=== PATIENT | male | born 1960 | race Caucasian/White ===

== ENCOUNTER 2017-03-14 09:32 | Inpatient (IN) | payer OTHER ==
[2017-03-14 12:18] VITALS: BMI 25.5
--- NOTE | 2017-03-14 14:15 | HP ---
COWS - Scale Resting Pulse: 0= [place] 80 or Below Sweatin=Flushed/Facial Moisture Restless Observation: 3= Extraneous Movement Pupil Size: 2= Moderately Dilated Bone or Joint Aches: 2= Severe Diffuse Aches Runny Nose/ Eye Tearin= Runny Nose/Eyes GI Upset > 30mins: 3= Vomiting/Diarrhea Tremor Observation: 2= Slight Tremor Visible Yawning Observation: 2= >3x During Session Anxiety or Irritability: 2=Irritable/Anxious Goose Flesh Skin: 0=Smooth Skin COWS Score: 20 CIWA Score - CIWA Score Nausea/Vomitin Muscle Tremors: 3 Anxiety: 3 Agitation: 3 Paroxysmal Sweats: 2 Orientation: 0-Oriented Tacttile Disturbances: 2-Mild Itch/Numbness/Burn Auditory Disturbances: 2-Mild Harshness/Frighten Visual Disturbances: 2-Mild Sensitivity Headache: 2-Mild CIWA-Ar Total Score: 22 Admission ROS BHS - HPI Chief Complaint: i need help to stop using heroin and alcohol Allergies/Adverse Reactions: Allergies Allergy/AdvReac Type Severity Reaction Status Date / Time Penicillins Allergy Severe Verified 05/12/16 12:21 History of Present Illness: this 56 years old male with heroin,alcohol dependence,seeking help to stop,last detox [facility] 05/12/16 to 05/16/16 multiple admissions in the past,keep relapsing longest period of sobriety 1 and a half years multiple medical problems htn,hiv,hepatitis c,bipolar disorder cancer of rectum on chemo and radiation therapy - Ebola screening Have you traveled outside of the country in the last 21 days: No Have you had contact with anyone from an Ebola affected area: No Have you been sick,other than usual withdrawal symptoms: No - Review of Systems Constitutional: Chills, Diaphoresis, Loss of Appetite, Malaise, Night Sweats, Changes in sleep, Weakness, Unexplained wgt Loss EENT: reports: Tearing, Nose Congestion Respiratory: reports: No Symptoms reported Cardiac: reports: No Symptoms Reported GI: reports: Diarrhea, Nausea, Vomiting, Abdominal cramping : reports: No Symptoms Reported Musculoskeletal: reports: Back Pain, Joint Pain, Muscle Pain, Joint Stiffness Integumentary: reports: Dryness Neuro: reports: Headache, Tremors Endocrine: reports: No Symptoms Reported Hematology: reports: No Symptoms Reported, Other (hiv) Psychiatric: reports: Judgement Intact (bipolar disorder), other Patient History - Patient Medical History Hx Anemia: Yes (NOT CURRENTLY ON MEDS) Hx Asthma: No Hx Chronic Obstructive Pulmonary Disease (COPD): No Hx Cancer: Yes (colorectal CA 2008. in remission) Hx Cardiac Disorders: No Hx Congestive Heart Failure: No Hx Hypertension: Yes (on meds.) Hx Hypercholesterolemia: No Hx Pacemaker: No HX Cerebrovascular Accident: No Hx Seizures: No Hx Dementia: No Hx Diabetes: No Hx Gastrointestinal Disorders: No Hx Liver Disease: No Hx Genitourinary Disorders: No Hx Sexually Transmitted Disorders: No Hx Renal Disease (ESRD): No Hx Thyroid Disease: No Hx Human Immunodeficiency Virus (HIV): Yes (SINCE 1999--ON MEDS; DENIES OIs.) Hx Hepatitis C: Yes (received tx Harvoni ) Hx Depression: Yes Hx Suicide Attempt: No (denies) Hx Bipolar Disorder: Yes (ON MEDS) Hx Schizophrenia: No Other Medical History: no suicidal,no homicidal - Patient Surgical History Past Surgical History: Yes Other Surgical History: PORTACATH RIGHT CHEST FOR CHEMO THERAPY S/P CANCER COLON 2007 still in plac Anesthesia Reaction: No - PPD History Previous Implant?: Yes Documented Results: Negative w/proof Date: 05/14/16 Results: 0 MM PPD to be Administered?: No - Smoking Cessation Smoking history: Current every day smoker Have you smoked in the past 12 months: Yes Aproximately how many cigarettes per day: 10 Hx Chewing Tobacco Use: No Initiated information on smoking cessation: Yes 'Breaking Loose' booklet given: 03/14/17 - Substance & Tx. History Hx Alcohol Use: Yes Hx Substance Use: Yes Substance Use Type: Alcohol, Heroin Hx Substance Use Treatment: Yes ([facility] last 05/12/16 to 05/16/16) Family Disease History - Family Disease History Family Disease History: Diabetes: Father (ALCOHOLISM ), Mother, Other: Father, Mother Admission Physical Exam S - Vital Signs Vital Signs: Vital Signs - 24 hr 03/14/17 12:14 Temperature 97.2 F L Pulse Rate 76 Respiratory 17 Rate Blood Pressure 127/88 - Physical General Appearance: Yes: Moderate Distress, Tremorous, Irritable, Sweating, Anxious HEENTM: Yes: Within Normal Limits, Hearing grossly Normal, RACHELE, Pharynx Normal Respiratory: Yes: Lungs Clear, Normal Breath Sounds, No Respiratory Distress, Other (scar in right upper chest post removal of portacath) Neck: Yes: Within Normal Limits Breast: Yes: Within Normal Limits Cardiology: Yes: Within Normal Limits, Regular Rhythm, Regular Rate, S1, S2 Abdominal: Yes: Within Normal Limits, Normal Bowel Sounds, Non Tender, Soft Genitourinary: Yes: Within Normal Limits Back: Yes: Within Normal Limits Musculoskeletal: Yes: Back pain, Joint Stiffness, Muscle Pain Extremities: Yes: Normal Range of Motion, Tremors Neurological: Yes: 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, Fully Oriented, Alert, Motor Strength 5/5 Integumentary: Yes: Dry Lymphatic: Yes: Within Normal Limits - Diagnostic (1) Opioid dependence with withdrawal Current Visit: Yes Status: Acute (2) Alcohol dependence with uncomplicated withdrawal Current Visit: Yes Status: Acute (3) HIV (human immunodeficiency virus infection) Current Visit: No Status: Chronic (4) HTN (hypertension) Current Visit: No Status: Chronic Qualifiers: Hypertension type: essential hypertension Qualified Code(s): I10 - Essential (primary) hypertension (5) Seizure Current Visit: Yes Status: Acute (6) Syncope Current Visit: Yes Status: Acute (7) Hepatitis C Current Visit: Yes Status: Acute (8) Colorectal cancer Current Visit: Yes Status: Acute (9) Weight loss Current Visit: Yes Status: Acute (10) Nicotine dependence Current Visit: No Status: Acute Qualifiers: Nicotine product type: cigarettes Substance use status: uncomplicated Qualified Code(s): F17.210 - Nicotine dependence, cigarettes, uncomplicated (11) Bipolar disorder Current Visit: No Status: Chronic Comment: Historical diagnosis. Cleared for Admission [facility] - Detox or Rehab [facility] Level of Care: Medically Managed Detox Regimen/Protocol: Methadone/Librium S Breath Alcohol Content Breath Alcohol Content: 0 Urine Drug Screen - Results Drug Screen Negative: No Urine Drug Screen Results: OPI-Opiates, BZO-Benzodiazepines
[2017-03-14] MEDS ORDERED: LOPERAMIDE HCL 2 MG CAPSULE PO PRN (14:54)
[2017-03-14] MEDS ORDERED: MAGNESIUM HYDROX 2400MG/30ML ORAL SUSPENSION 30 ML CUP PO PRN (14:54)
[2017-03-14] MEDS ORDERED: guaiFENesin/D-METHORPHAN HB 10 ML UNIT-DOSE CUPS PO PRN (14:54)
[2017-03-14] MEDS ORDERED: ACETAMINOPHEN 325 MG TABLET (FP) PO PRN (14:54)
[2017-03-14] MEDS ORDERED: hydrOXYzine PAMOATE 50 MG CAPSULE (FP) PO PRN (14:54)
[2017-03-14] MEDS ORDERED: MAG HYDROX/AL HYDROX/SIMETH 30 ML UNIT-DOSE CUP PO PRN (14:54)
[2017-03-14] MEDS ORDERED: MAGNESIUM CITRATE 300 ML BOTTLE PO PRN (14:54)
[2017-03-14] MEDS ORDERED: MENTHOL/PHENOL 1 EACH UD MM PRN (14:54)
[2017-03-14] MEDS ORDERED: P-EPHED 60MG/TRIPROLIDI 2.5MG TABLET PO PRN (14:54)
[2017-03-14] MEDS ORDERED: NICOTINE POLACRILEX 2 MG GUM BUC PRN (14:54)
[2017-03-14] MEDS ORDERED: METHADONE HCL 10 MG TABLET (FOR DETOX USE ONLY) PO ONE ×2 (15:10→23:00)
[2017-03-14] MEDS: chlordiazePOXIDE HCL 25 MG CAPSULE PO SCH ×2 (16:36→22:19)
[2017-03-14] MEDS: chlordiazePOXIDE HCL 25 MG CAPSULE PO PRN (19:47)
[2017-03-14] MEDS ORDERED: THIAMINE HCL 100 MG TABLET (FP) PO SCH (22:00)
[2017-03-14] MEDS: diphenhydrAMINE HCL 50 MG CAPSULE PO PRN (22:22)
[2017-03-15] MEDS: diphenhydrAMINE HCL 50 MG CAPSULE PO PRN (00:38)
[2017-03-15] MEDS: chlordiazePOXIDE HCL 25 MG CAPSULE PO PRN ×2 (00:38→12:14)
[2017-03-15] MEDS: CYCLOBENZAPRINE HCL 10 MG TABLET (FP) PO PRN ×2 (02:40→16:52)
[2017-03-15] MEDS: IBUPROFEN 400 MG TABLET (FP) PO PRN ×2 (02:40→15:52)
[2017-03-15] MEDS: chlordiazePOXIDE HCL 25 MG CAPSULE PO SCH ×2 (05:40→10:21)
[2017-03-15] MEDS ORDERED: cloNIDine HCL 0.1 MG TABLET PO ONE ×2 (07:26→17:45)
--- NOTE | 2017-03-15 09:37 | PN ---
S CIWA - CIWA Score Nausea/Vomitin Muscle Tremors: 3 Anxiety: 3 Agitation: 3 Paroxysmal Sweats: 2 Orientation: 0-Oriented Tacttile Disturbances: 1-Very Mild Itch/Numbness Auditory Disturbances: 1-Very Mild Visual Disturbances: 1-Very Mild Sensitivity Headache: 2-Mild CIWA-Ar Total Score: 19 BHS COWS - Scale Resting Pulse: 0= [place] 80 or Below Sweatin= Chills/Flushing Restless Observation: 3= Extraneous Movement Pupil Size: 2= Moderately Dilated Bone or Joint Aches: 2= Severe Diffuse Aches Runny Nose/ Eye Tearin= Runny Nose/Eyes GI Upset > 30mins: 2= Nausea/Diarrhea Tremor Observation of Outstretched Hands: 2= Slight Tremor Visible Yawning Observation: 1= 1-2x During Session Anxiety or Irritability: 2=Irritable/Anxious Goose Flesh Skin: 0=Smooth Skin COWS Score: 17 S Progress Note (SOAP) Subjective: ALERT,IRRITABLE,ANXIOUS,INTERRUPTED SLEEP,TREMOR,PAIN IN THE BODY AND BACK, TREMOR Objective: 03/15/17 09:35 Vital Signs Temperature 97.3 F L 03/15/17 06:22 Pulse Rate 73 03/15/17 06:22 Respiratory Rate 18 03/15/17 06:22 Blood Pressure 148/105 03/15/17 06:22 O2 Sat by Pulse Oximetry (%) EKG NSR,NORMAL ECG LABS PENDING Assessment: 03/15/17 09:36 WITHDRAWAL SYMPTOM Plan: CONTINUE DETOX
[2017-03-15] MEDS ORDERED: amLODIPine BESYLATE 5 MG TABLET (FP) PO SCH (10:00)
[2017-03-15] MEDS ORDERED: PRENATAL VITAMINS W/ FOLIC ACID TABLET (FP) PO SCH (10:00)
[2017-03-15] MEDS ORDERED: METHADONE HCL 10 MG TABLET (FOR DETOX USE ONLY) PO SCH (10:00)
[2017-03-15 10:04] LABS: MCH 33.7 pg (25.7-33.7); MCHC 34.1 g/dl (32.0-35.9); MEAN CELL VOLUME 98.9 fl (80-96); MEAN PLT VOLUME 9.3 fl (7.5-11.1); PLATELET COUNT 195 K/MM3 (134-434); RDW 14.5 % (11.9-15.9); WHITE BLOOD COUNT 8.8 K/mm3 (4.0-10.0)
[2017-03-15] MEDS: levETIRAcetam 500 MG TABLET (FP) PO SCH ×2 (10:24→12:21)
[2017-03-15 10:30] LABS: ALBUMIN 4.1 g/dl (3.4-5.0); ALK PHOS 129 U/L (45-117); ANION GAP 7 (8-16); BILIRUBIN,TOTAL 0.5 mg/dL (0.2-1.0); CALCIUM 9.4 mg/dL (8.5-10.1); CO2 28 mmol/L (21-32); CREATININE 1.2 mg/dL (0.7-1.3); GLUCOSE,RANDOM 94 mg/dL (74-106); SGOT/AST 22 U/L (15-37); SGPT/ALT 28 U/L (12-78); TOT PROT 7.9 g/dl (6.4-8.2)
[2017-03-15] MEDS ORDERED: SERTRALINE HCL 50 MG TABLET (FP) PO SCH (11:30)
[2017-03-15] MEDS ORDERED: NICOTINE 21 MG/24 HOURS TOPICAL PATCH TD SCH (12:15)
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
[2017-03-15] MEDS ORDERED: cloNIDine HCL 0.1 MG TABLET ONE (16:59)
[2017-03-15] MEDS ORDERED: chlordiazePOXIDE HCL 25 MG CAPSULE PO SCH (17:00)
[2017-03-15 17:12] VITALS: BP 155/110; PULSE 83; TEMP 97.2
--- NOTE | 2017-03-15 17:14 | EKG ---
Test Reason : Blood Pressure : / mmHG Vent. Rate : 080 BPM Atrial Rate : 080 BPM P-R Int : 198 ms QRS Dur : 088 ms QT Int : 390 ms P-R-T Axes : 066 064 065 degrees QTc Int : 449 ms NORMAL SINUS RHYTHM. NONSPECIFIC ST AND T WAVE ABNORMALITY NO PREVIOUS ECGS AVAILABLE Confirmed by FRANCOISE MOYER MD ([id number]) on 03/15/2017 5:14:06 PM Referred By: Confirmed By:FRANCOISE MOYER MD
--- NOTE | 2017-03-15 18:17 | PN ---
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 He stated "I just want to go and I have nothing to say to you". When asked what home medications he needs refills for he stated " I don't need anything". Pt. was agitated and did not want to answer any further questions.
[2017-03-15] MEDS ORDERED: QUEtiapine FUMARATE 100 MG TABLET (FP) PO SCH (22:00)
[2017-03-16] MEDS ORDERED: METHADONE HCL 5 MG TABLET (FOR DETOX USE ONLY) PO SCH (10:00)
[2017-03-16] MEDS ORDERED: chlordiazePOXIDE 5 MG CAPSULE PO SCH (17:00)
[2017-03-17] MEDS ORDERED: chlordiazePOXIDE HCL 10 MG CAPSULE PO SCH (17:00)
[2017-03-18] MEDS ORDERED: METHADONE HCL 10 MG TABLET (FOR DETOX USE ONLY) PO SCH (10:00)
[2017-03-19] MEDS ORDERED: METHADONE HCL 5 MG TABLET (FOR DETOX USE ONLY) PO SCH (06:00)
== END 2017-03-15 18:37 | disposition left against medical advice (07) | DRG 770 ==
LOC: YASAS 09:32 → Y6N 14:48
PROVIDERS: ADMIT Internal Medicine Addiction Medicine; ATTEND Internal Medicine Addiction Medicine
PROC: HZ2ZZZZ Detoxification Services for Substance Abuse Treatment (ICD-10-PCS; principal; 2017-03-15)
DX: F11.23 Opioid dependence with withdrawal (principal); F10.230 Alcohol dependence with withdrawal, uncomplicated; F17.210 Nicotine dependence, cigarettes, uncomplicated; F31.9 Bipolar disorder, unspecified; G40.909 Epilepsy, unspecified, not intractable, without status epilepticus; B18.2 Chronic viral hepatitis C; R55 Syncope and collapse; Z21 Asymptomatic human immunodeficiency virus [HIV] infection status; R63.4 Abnormal weight loss; Z68.25 Body mass index [BMI] 25.0-25.9, adult; Z85.038 Personal history of other malignant neoplasm of large intestine
CPT/HCPCS: 36415; 80053; 85027; 86593; 93005; 93010

== ENCOUNTER 2017-05-09 10:46 | Inpatient (IN) | payer OTHER ==
[2017-05-09 12:11] VITALS: BMI 27.0
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
[2017-05-09] MEDS ORDERED: MAG HYDROX/AL HYDROX/SIMETH 30 ML UNIT-DOSE CUP PO PRN (14:03)
[2017-05-09] MEDS ORDERED: NICOTINE POLACRILEX 4 MG GUM BC PRN (14:03)
[2017-05-09] MEDS ORDERED: MAGNESIUM CITRATE 300 ML BOTTLE PO PRN (14:03)
[2017-05-09] MEDS ORDERED: MAGNESIUM HYDROX 2400MG/30ML ORAL SUSPENSION 30 ML CUP PO PRN (14:03)
[2017-05-09] MEDS ORDERED: diphenhydrAMINE HCL 50 MG CAPSULE PO PRN (14:03)
[2017-05-09] MEDS ORDERED: guaiFENesin/D-METHORPHAN HB 10 ML UNIT-DOSE CUPS PO PRN (14:03)
[2017-05-09] MEDS ORDERED: hydrOXYzine PAMOATE 50 MG CAPSULE (FP) PO PRN (14:03)
[2017-05-09] MEDS ORDERED: MENTHOL/PHENOL 1 EACH UD MM PRN (14:03)
[2017-05-09] MEDS ORDERED: LOPERAMIDE HCL 2 MG CAPSULE PO PRN (14:03)
[2017-05-09] MEDS ORDERED: P-EPHED 60MG/TRIPROLIDI 2.5MG TABLET PO PRN (14:03)
[2017-05-09] MEDS ORDERED: ACETAMINOPHEN 325 MG TABLET (FP) PO PRN (14:03)
[2017-05-09] MEDS ORDERED: IBUPROFEN 400 MG TABLET (FP) PO PRN (14:03)
[2017-05-09] MEDS: diazePAM 5 MG TABLET PO SCH ×2 (14:54→22:14)
[2017-05-09] MEDS ORDERED: diazePAM 5 MG TABLET PO ONE (15:00)
[2017-05-09] MEDS ORDERED: METHADONE HCL 10 MG TABLET (FOR DETOX USE ONLY) PO ONE ×2 (15:00→23:00)
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
[2017-05-09 18:35] LABS: MCH 33.5 pg (25.7-33.7); MCHC 34.6 g/dl (32.0-35.9); MEAN CELL VOLUME 96.9 fl (80-96); MEAN PLT VOLUME 9.9 fl (7.5-11.1); PLATELET COUNT 140 K/MM3 (134-434); RDW 14.4 % (11.9-15.9); WHITE BLOOD COUNT 6.2 K/mm3 (4.0-10.0)
[2017-05-09] MEDS: diazePAM 5 MG TABLET PO PRN (19:00)
[2017-05-09 19:11] LABS: ALBUMIN 4.2 g/dl (3.4-5.0); ALK PHOS 143 U/L (45-117); ANION GAP 7 (8-16); BILIRUBIN,TOTAL 0.3 mg/dL (0.2-1.0); CO2 27 mmol/L (21-32); CREATININE 1.5 mg/dL (0.7-1.3); GLUCOSE,RANDOM 119 mg/dL (74-106); SGOT/AST 29 U/L (15-37); SGPT/ALT 39 U/L (12-78); TOT PROT 7.9 g/dl (6.4-8.2)
[2017-05-09 20:01] LABS: URINE APPEARANCE CLEAR; URINE BILIRUBIN 1+ (NEGATIVE); URINE BLOOD 2+ (NEGATIVE); URINE COLOR DK. BROWN; URINE GLUCOSE (UA) NEGATIVE (NEGATIVE); URINE KETONE TRACE (NEGATIVE); URINE LEUK ESTERASE NEGATIVE (NEGATIVE); URINE UROBILINOGEN 0.2 mg/dL (0.2-1.0)
[2017-05-09 20:08] LABS: URINE NITRITE POSITIVE (NEGATIVE); URINE PROTEIN 1+ (NEGATIVE)
[2017-05-09 20:24] LABS: URINE BACTERIA RARE /hpf (NONE SEEN); URINE HYALINE CAST 1 /lpf; URINE MUCUS RARE; URINE RBC 3 /hpf (0-3); URINE WBC 3 /hpf (3-5)
[2017-05-09] MEDS ORDERED: THIAMINE HCL 100 MG TABLET (FP) PO SCH (22:00)
[2017-05-09] MEDS ORDERED: QUEtiapine FUMARATE 100 MG TABLET (FP) PO SCH (22:00)
[2017-05-09] MEDS: RALTEGRAVIR POTASSIUM 400 MG TAB PO SCH (22:14)
--- NOTE | 2017-05-09 23:17 | EKG ---
Test Reason : Blood Pressure : / mmHG Vent. Rate : 079 BPM Atrial Rate : 079 BPM P-R Int : 196 ms QRS Dur : 086 ms QT Int : 402 ms P-R-T Axes : 073 060 060 degrees QTc Int : 460 ms NORMAL SINUS RHYTHM NORMAL ECG WHEN COMPARED WITH ECG OF 14-MAR-2017 15:40, NO SIGNIFICANT CHANGE WAS FOUND Confirmed by CAROLANN SILVER MD ([id number]) on 05/09/2017 11:16:44 PM Referred By: Xiang Guerrero Confirmed By:CAROLANN SILVER MD
[2017-05-10] MEDS: diazePAM 5 MG TABLET PO SCH (05:10)
[2017-05-10] MEDS: diazePAM 5 MG TABLET PO PRN (07:43)
[2017-05-10 09:19] VITALS: BP 92/67; PULSE 80; TEMP 97.4
[2017-05-10] MEDS ORDERED: CYCLOBENZAPRINE HCL 10 MG TABLET (FP) PO ONE (09:51)
[2017-05-10] MEDS ORDERED: PATIENT'S OWN MEDICATION (NON-FORMULARY) (Abacavir Sulfate/Lamivudine [Epzicom Tablet] 1 T PO SCH (10:00)
[2017-05-10] MEDS ORDERED: METHADONE HCL 10 MG TABLET (FOR DETOX USE ONLY) PO SCH (10:00)
[2017-05-10] MEDS ORDERED: NICOTINE 21 MG/24 HOURS TOPICAL PATCH TD SCH (10:00)
[2017-05-10] MEDS ORDERED: PRENATAL VITAMINS W/ FOLIC ACID TABLET (FP) PO SCH (10:00)
[2017-05-10] MEDS ORDERED: ABACAVIR SULFATE 300 MG TABLET PO SCH (10:00)
[2017-05-10] MEDS ORDERED: amLODIPine BESYLATE 5 MG TABLET (FP) PO SCH (10:00)
[2017-05-10] MEDS: RALTEGRAVIR POTASSIUM 400 MG TAB PO SCH (10:16)
--- NOTE | 2017-05-10 12:03 | DS ---
[facility] Detox Discharge Summary Admission Date: 05/09/17 Discharge Date: 05/10/17 - History Present History: Alcohol Dependence, Opioid Dependence, Sedative Dependence Additional Comments: PT DECLINED TO CONTINUE WITH DETOX STATING HE DOES NOT WANT TO BE HERE. Pertinent Past History: HTN HIV(+) WEIGHT LOSS S/P COLORECTAL CANCER - Physical Exam Results Vital Signs: Vital Signs Temperature 97.4 F L 05/10/17 09:15 Pulse Rate 80 05/10/17 09:15 Respiratory Rate 18 05/10/17 09:15 Blood Pressure 92/67 05/10/17 09:15 O2 Sat by Pulse Oximetry (%) Pertinent Admission Physical Exam Findings: WITHDRAWAL SX Laboratory Last Values - Treatment Hospital Course: Discharged Condition Good - Medication Discharge Medications: Ambulatory Orders Dolutegravir Sodium [Tivicay] 50 mg PO DAILY 09/09/15 Abacavir Sulfate/Lamivudine [Epzicom Tablet] 1 tablet PO DAILY 05/12/16 Amlodipine Besylate [Norvasc -] 5 mg PO DAILY 03/14/17 Quetiapine Fumarate [Seroquel] 100 mg PO HS #30 tablet 03/15/17 Quetiapine Fumarate [Seroquel] 100 mg PO HS #30 tablet 05/09/17 - Diagnosis (1) Alcohol dependence with uncomplicated withdrawal Status: Acute (2) Nicotine dependence Status: Acute Qualifiers: Nicotine product type: cigarettes Substance use status: in withdrawal Qualified Code(s): F17.213 - Nicotine dependence, cigarettes, with withdrawal (3) HIV (human immunodeficiency virus infection) Status: Chronic (4) Hepatitis C Status: Chronic Qualifiers: Viral hepatitis chronicity: chronic Hepatic coma status: without hepatic coma Qualified Code(s): B18.2 - Chronic viral hepatitis C (5) Weight loss Status: Chronic (6) Opioid dependence with withdrawal Status: Acute (7) HTN (hypertension) Status: Chronic Qualifiers: Hypertension type: essential hypertension Qualified Code(s): I10 - Essential (primary) hypertension (8) Sedative, hypnotic or anxiolytic dependence with withdrawal, uncomplicated Status: Acute - AMA Did Patient Leave Against Medical Advice: Yes (AMA)
[2017-05-10] MEDS ORDERED: CYCLOBENZAPRINE HCL 10 MG TABLET (FP) PO SCH (14:00)
[2017-05-11] MEDS ORDERED: diazePAM 5 MG TABLET PO SCH (10:00)
[2017-05-11] MEDS ORDERED: METHADONE HCL 5 MG TABLET (FOR DETOX USE ONLY) PO SCH (10:00)
[2017-05-13] MEDS ORDERED: METHADONE HCL 10 MG TABLET (FOR DETOX USE ONLY) PO SCH (10:00)
[2017-05-13] MEDS ORDERED: diazePAM 5 MG TABLET PO SCH (10:00)
[2017-05-14] MEDS ORDERED: METHADONE HCL 5 MG TABLET (FOR DETOX USE ONLY) PO SCH (06:00)
== END 2017-05-10 11:22 | disposition left against medical advice (07) | DRG 770 ==
LOC: YASAS 10:46 → Y3N 14:08
PROVIDERS: ADMIT Internal Medicine; ATTEND Internal Medicine
PROC: HZ2ZZZZ Detoxification Services for Substance Abuse Treatment (ICD-10-PCS; principal; 2017-05-09)
DX: F11.23 Opioid dependence with withdrawal (principal); F13.230 Sedative, hypnotic or anxiolytic dependence with withdrawal, uncomplicated; F10.230 Alcohol dependence with withdrawal, uncomplicated; F17.213 Nicotine dependence, cigarettes, with withdrawal; F19.24 Other psychoactive substance dependence with psychoactive substance-induced mood disorder; Z21 Asymptomatic human immunodeficiency virus [HIV] infection status; B18.2 Chronic viral hepatitis C; G47.00 Insomnia, unspecified; Z91.14 Patient's other noncompliance with medication regimen; Z87.898 Personal history of other specified conditions; Z86.69 Personal history of other diseases of the nervous system and sense organs; Z85.038 Personal history of other malignant neoplasm of large intestine; Z92.21 Personal history of antineoplastic chemotherapy; Z91.5 Personal history of self-harm
CPT/HCPCS: 36415; 80053; 81003; 81015; 85027; 86593; 93005; 93010

== ENCOUNTER 2018-05-19 08:46 | Inpatient (IN) | payer OTHER ==
[2018-05-19 10:23] VITALS: BMI 25.8
--- NOTE | 2018-05-19 12:24 | HP ---
COWS - Scale Resting Pulse: 1= [place] 81-100 Sweatin= Chills/Flushing Restless Observation: 0= Sits Still Pupil Size: 0= Normal to Room Light Bone or Joint Aches: 2= Severe Diffuse Aches Runny Nose/ Eye Tearin= None GI Upset > 30mins: 2= Nausea/Diarrhea Tremor Observation: 0= None Yawning Observation: 0= None Anxiety or Irritability: 2=Irritable/Anxious Goose Flesh Skin: 0=Smooth Skin COWS Score: 8 Admission ROS S - HPI Allergies/Adverse Reactions: Allergies Allergy/AdvReac Type Severity Reaction Status Date / Time Penicillins Allergy Severe seizures Verified 05/19/18 10:58 History of Present Illness: patient here requesting detox from heroin use , reports 3-4 bags daily ivdu , first age of use 19 , latest use last night , reports symptoms as above - chills, nausea, severe anxiety , bodyaches . Prior detox "a Lot " most recently at this facility Jun 2017 . utox : opi, oxy, fentanyl denies fentanyl, admits to oxycodone 2-3 mg /day , reports 30 mg each , latest 2 d . ago . pmhx : htn ,HIV+ pshx : denies psych : bipolar , depression, ptsd allergies : PCN meds : none - claims he is supposed to take Wellbutrin, seroquel , has not taken in > 8 months . tobacco : 6-10 cigs/day ,requesting nrt w/ patch Exam Limitations: No Limitations - Ebola screening Have you traveled outside of the country in the last 21 days: No Have you had contact with anyone from an Ebola affected area: No Have you been sick,other than usual withdrawal symptoms: No Do you have a fever: No - Review of Systems Constitutional: Chills EENT: reports: No Symptoms Reported, Other (glasses for reading) Respiratory: reports: No Symptoms reported Cardiac: reports: No Symptoms Reported GI: reports: Diarrhea, Nausea : reports: No Symptoms Reported Musculoskeletal: reports: Back Pain Integumentary: reports: No Symptoms Reported Neuro: reports: Seizure Endocrine: reports: No Symptoms Reported Psychiatric: reports: Judgement Intact, Orientated x3, Depressed Other Systems: Reviewed and Negative Patient History - Patient Medical History Hx Anemia: Yes (NOT CURRENTLY ON MEDS) Hx Asthma: No Hx Chronic Obstructive Pulmonary Disease (COPD): No Hx Cancer: Yes (colorectal CA 2008. in remission) Hx Cardiac Disorders: No Hx Congestive Heart Failure: No Hx Hypertension: Yes Hx Hypercholesterolemia: No Hx Pacemaker: No HX Cerebrovascular Accident: No Hx Seizures: Yes (drug related seizures-last episode was in 06/2017) Hx Dementia: No Hx Diabetes: No Hx Gastrointestinal Disorders: No Hx Liver Disease: No Hx Genitourinary Disorders: No Hx Sexually Transmitted Disorders: Yes (gonorrhea at age 16) Hx Renal Disease (ESRD): No Hx Thyroid Disease: No Hx Human Immunodeficiency Virus (HIV): Yes (SINCE 1999--ON MEDS; DENIES OIs.) Hx Hepatitis C: Yes (received tx Harvoni ) Hx Depression: Yes Hx Suicide Attempt: No Hx Bipolar Disorder: Yes (DID NOT TOLERATE WELBUTRIN AND ZOLOFT PREVIOUSLY WELL. ) Hx Schizophrenia: No - Patient Surgical History Past Surgical History: Yes Hx Neurologic Surgery: No Hx Cataract Extraction: No Hx Cardiac Surgery: No Hx Lung Surgery: No Hx Breast Surgery: No Hx Breast Biopsy: No Hx Abdominal Surgery: No Hx Appendectomy: No Hx Cholecystectomy: No Hx Genitourinary Surgery: No Hx Section: No Hx Orthopedic Surgery: No Other Surgical History: PORTACATH RIGHT CHEST FOR CHEMO THERAPY S/P CANCER COLON Anesthesia Reaction: No (portacath, right chest removed in 2013) - PPD History Previous Implant?: Yes Documented Results: Negative w/proof Implanted On Prior [facility] Admission?: Yes Date: 07/06/17 Results: 0 mm - Smoking Cessation Smoking history: Current every day smoker Have you smoked in the past 12 months: Yes Aproximately how many cigarettes per day: 6 Hx Chewing Tobacco Use: No Initiated information on smoking cessation: No - Substances Abused Heroin Route: Injection Frequency: Daily Amount used: 4 bags Age of first use: 19 Date of Last Use: 05/19/18 Family Disease History - Family Disease History Family History: Denies Admission Physical Exam BHS - Vital Signs Vital Signs: Vital Signs - 24 hr 05/19/18 10:19 Temperature 96.6 F L Pulse Rate 81 Respiratory 20 Rate Blood Pressure 152/92 - Physical General Appearance: Yes: Within Normal Limits, No Apparent Distress, Nourished, Appropriately Dressed HEENTM: Yes: Within Normal Limits, EOMI, Hearing grossly Normal, Normal ENT Inspection, Normocephalic, Normal Voice, RACHELE, Pharynx Normal Respiratory: Yes: Within Normal Limits, Chest Non-Tender, Lungs Clear, Normal Breath Sounds, No Respiratory Distress, No Accessory Muscle Use Neck: Yes: Within Normal Limits, No masses,lesions,Nodules, Trachea in good position Cardiology: Yes: Within Normal Limits, Regular Rhythm, Regular Rate Abdominal: Yes: Within Normal Limits, Normal Bowel Sounds, Non Tender, Flat, Soft Genitourinary: Yes: Within Normal Limits Back: Yes: Within Normal Limits, Normal Inspection Musculoskeletal: Yes: Within Normal Limits, full range of Motion, Gait Steady, Pelvis Stable Extremities: Yes: Within Normal Limits, Normal Capillary Refill, Normal Inspection, Normal Range of Motion, Non-Tender Neurological: Yes: Within Normal Limits, mortar maker II-XII NML intact, Fully Oriented, Alert, Motor Strength 5/5, Normal Mood/Affect, Normal Response Integumentary: Yes: Within Normal Limits, Normal Color, Dry, Warm - Addiitonal Findings: [facility] called @ [phone] , for verification of medications as requested by patient , spoke w/ pharmacist who refused to give medication information and requested call from patient . Floor nurse informed ( Clotilde ) . - Diagnostic (1) Opioid dependence with withdrawal Current Visit: Yes Status: Acute Cleared for Admission [facility] - Detox or Rehab [facility] Level of Care: Medically Supervised Detox Regimen/Protocol: Methadone [facility] Breath Alcohol Content Breath Alcohol Content: 0 Urine Drug Screen - Results Drug Screen Negative: No Urine Drug Screen Results: OPI-Opiates, OXY-Oxycodone, FEN-Fentanyl
[2018-05-19] MEDS ORDERED: guaiFENesin/D-METHORPHAN HB 10 ML UNIT-DOSE CUPS PO PRN (12:30)
[2018-05-19] MEDS ORDERED: MAG HYDROX/AL HYDROX/SIMETH 30 ML UNIT-DOSE CUP PO PRN (12:30)
[2018-05-19] MEDS ORDERED: LOPERAMIDE HCL 2 MG CAPSULE PO PRN (12:30)
[2018-05-19] MEDS ORDERED: ACETAMINOPHEN 325 MG TABLET (FP) PO PRN (12:30)
[2018-05-19] MEDS ORDERED: MAGNESIUM HYDROX 2400MG/30ML ORAL SUSPENSION 30 ML CUP PO PRN (12:30)
[2018-05-19] MEDS ORDERED: P-EPHED 60MG/TRIPROLIDI 2.5MG TABLET PO PRN (12:30)
[2018-05-19] MEDS ORDERED: MENTHOL/PHENOL 1 EACH UD MM PRN (12:30)
[2018-05-19] MEDS ORDERED: MAGNESIUM CITRATE 300 ML BOTTLE PO PRN (12:30)
[2018-05-19] MEDS ORDERED: cloNIDine HCL 0.1 MG TABLET PO PRN (12:32)
[2018-05-19] MEDS ORDERED: METHADONE HCL 10 MG TABLET (FOR DETOX USE ONLY) PO ONE ×2 (13:00→23:00)
[2018-05-19] MEDS: CYCLOBENZAPRINE HCL 5 MG TABLET PO PRN (14:09)
[2018-05-19] MEDS: NICOTINE 7 MG/24 HOURS TOPICAL PATCH TD SCH (14:09)
[2018-05-19] MEDS: hydrOXYzine PAMOATE 25 MG CAPSULE (FP) PO PRN (14:09)
[2018-05-19] MEDS: amLODIPine BESYLATE 5 MG TABLET (FP) PO SCH (14:09)
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
[2018-05-19 17:35] LABS: URINE APPEARANCE SLCLOUDY; URINE BILIRUBIN NEGATIVE (<2.0 mg/dL); URINE COLOR YELLOW; URINE GLUCOSE (UA) NEGATIVE (NEGATIVE); URINE KETONE NEGATIVE (NEGATIVE); URINE LEUK ESTERASE NEGATIVE (NEGATIVE); URINE NITRITE NEGATIVE (NEGATIVE); URINE UROBILINOGEN NEGATIVE mg/dL (0.2-1.0)
[2018-05-19 17:37] LABS: URINE PROTEIN 1+ (NEGATIVE)
[2018-05-19 17:41] LABS: CALCIUM OXALATE CRYSTALS FEW /hpf (NONE SEEN); EPI CELLS RARE /HPF (FEW); URINE HYALINE CAST 56 /lpf; URINE MUCUS MANY
[2018-05-19] MEDS: QUEtiapine FUMARATE 50 MG TABLET PO SCH (22:21)
[2018-05-19] MEDS: THIAMINE HCL 100 MG TABLET (FP) PO SCH (22:21)
[2018-05-20] MEDS ORDERED: METHADONE HCL 10 MG TABLET (FOR DETOX USE ONLY) PO ONE (10:00)
[2018-05-20] MEDS: PRENATAL VITAMINS W/ FOLIC ACID TABLET (FP) PO SCH (10:27)
[2018-05-20] MEDS: amLODIPine BESYLATE 5 MG TABLET (FP) PO SCH (10:27)
[2018-05-20] MEDS: NICOTINE 7 MG/24 HOURS TOPICAL PATCH TD SCH (10:27)
[2018-05-20] MEDS: hydrOXYzine PAMOATE 25 MG CAPSULE (FP) PO PRN ×4 (10:30→22:37)
[2018-05-20] MEDS: IBUPROFEN 400 MG TABLET (FP) PO PRN (10:33)
[2018-05-20 10:52] LABS: HEMOGLOBIN 13.1 GM/dL (11.7-16.9); MCH 32.5 pg (25.7-33.7); MCHC 33.6 g/dl (32.0-35.9); MEAN CELL VOLUME 96.8 fl (80-96); MEAN PLT VOLUME 9.1 fl (7.5-11.1); PLATELET COUNT 194 K/MM3 (134-434); RBC 4.03 M/mm3 (4.00-5.60); RDW 13.6 % (11.9-15.9); WHITE BLOOD COUNT 7.9 K/mm3 (4.0-10.0)
[2018-05-20 10:58] LABS: ALBUMIN 3.8 g/dl (3.4-5.0); ALK PHOS 137 U/L (45-117); ANION GAP 10 MMOL/L (8-16); BILIRUBIN,TOTAL 0.4 mg/dL (0.2-1); BLOOD UREA NITROGEN 16 mg/dL (7-18); CALCIUM 9.3 mg/dL (8.5-10.1); CHLORIDE 103 mmol/L (98-107); CO2 26 mmol/L (21-32); CREATININE 1.6 mg/dL (0.55-1.3); GLUCOSE,RANDOM 114 mg/dL (74-106); POTASSIUM 3.9 mmol/L (3.5-5.1); SGOT/AST 22 U/L (15-37); SGPT/ALT 27 U/L (13-61); SODIUM 139 mmol/L (136-145); TOT PROT 7.8 g/dl (6.4-8.2)
--- NOTE | 2018-05-20 11:12 | PN ---
BHS COWS - Scale Resting Pulse: 0= [place] 80 or Below Sweatin=Flushed/Facial Moisture Restless Observation: 1= Difficult to Sit Still Pupil Size: 0= Normal to Room Light Bone or Joint Aches: 2= Severe Diffuse Aches Runny Nose/ Eye Tearin= Nasal Congestion GI Upset > 30mins: 1= Stomach Cramp Tremor Observation of Outstretched Hands: 2= Slight Tremor Visible Yawning Observation: 0= None Anxiety or Irritability: 2=Irritable/Anxious Goose Flesh Skin: 3=Piloerection COWS Score: 14 BHS Progress Note (SOAP) Subjective: Interrupted sleep, restlessness, muscle ache Objective: 05/20/18 11:11 Vital Signs 05/20/18 05/20/18 05/20/18 03:30 06:00 10:07 Temperature 98.2 F 97.9 F Pulse Rate 76 68 Respiratory 18 18 16 Rate Blood Pressure 136/76 141/86 Laboratory Last Values WBC 7.9 K/mm3 (4.0-10.0) 05/20/18 06:10 RBC 4.03 M/mm3 (4.00-5.60) 05/20/18 06:10 Hgb 13.1 GM/dL (11.7-16.9) 05/20/18 06:10 Hct 39.0 % (35.4-49) 05/20/18 06:10 MCV 96.8 fl (80-96) H 05/20/18 06:10 MCH 32.5 pg (25.7-33.7) 05/20/18 06:10 MCHC 33.6 g/dl (32.0-35.9) 05/20/18 06:10 RDW 13.6 % (11.9-15.9) 05/20/18 06:10 Plt Count 194 K/MM3 (134-434) D 05/20/18 06:10 MPV 9.1 fl (7.5-11.1) D 05/20/18 06:10 Sodium 139 mmol/L (136-145) 05/20/18 06:10 Potassium 3.9 mmol/L (3.5-5.1) 05/20/18 06:10 Chloride 103 mmol/L (98-107) 05/20/18 06:10 Carbon Dioxide 26 mmol/L (21-32) 05/20/18 06:10 Anion Gap 10 MMOL/L (8-16) 05/20/18 06:10 BUN 16 mg/dL (7-18) 05/20/18 06:10 Creatinine 1.6 mg/dL (0.55-1.3) H 05/20/18 06:10 Creat Clearance w eGFR 44.94 (>60) 05/20/18 06:10 Random Glucose 114 mg/dL (74-106) H 05/20/18 06:10 Calcium 9.3 mg/dL (8.5-10.1) 05/20/18 06:10 Total Bilirubin 0.4 mg/dL (0.2-1) 05/20/18 06:10 AST 22 U/L (15-37) 05/20/18 06:10 ALT 27 U/L (13-61) 05/20/18 06:10 Alkaline Phosphatase 137 U/L (45-117) H 05/20/18 06:10 Total Protein 7.8 g/dl (6.4-8.2) 05/20/18 06:10 Albumin 3.8 g/dl (3.4-5.0) 05/20/18 06:10 Urine Color Yellow 05/19/18 15:30 Urine Appearance Slcloudy 05/19/18 15:30 Urine pH 5.0 (5.0-8.0) 05/19/18 15:30 Ur Specific [place] 1.019 (1.001-1.035) 05/19/18 15:30 Urine Protein 1+ (NEGATIVE) H 05/19/18 15:30 Urine Glucose (UA) Negative (NEGATIVE) 05/19/18 15:30 Urine Ketones Negative (NEGATIVE) 05/19/18 15:30 Urine Blood Negative (NEGATIVE) 05/19/18 15:30 Urine Nitrite Negative (NEGATIVE) 05/19/18 15:30 Urine Bilirubin Negative (<2.0 mg/dL) 05/19/18 15:30 Urine Urobilinogen Negative mg/dL (0.2-1.0) 05/19/18 15:30 Ur Leukocyte Esterase Negative (NEGATIVE) 05/19/18 15:30 Urine WBC (Auto) 1 /hpf (3-5) 05/19/18 15:30 Urine RBC (Auto) 1 /hpf (0-3) 05/19/18 15:30 Ur Epithelial Cells Rare /HPF (FEW) 05/19/18 15:30 Calcium Oxalate Crystal Few /hpf (NONE SEEN) 05/19/18 15:30 Hyaline Casts 56 /lpf 05/19/18 15:30 Urine Mucus Many 05/19/18 15:30 Labs noted Assessment: 05/20/18 11:11 Withdrawal sx Plan: Continue detox
[2018-05-20] MEDS ORDERED: FLU VACCINE QUAD 60 MCG/0.5 ML (MDV 18-19) IM ONE (12:00)
--- NOTE | 2018-05-20 15:52 | EKG ---
Test Reason : Blood Pressure : / mmHG Vent. Rate : 075 BPM Atrial Rate : 075 BPM P-R Int : 186 ms QRS Dur : 092 ms QT Int : 408 ms P-R-T Axes : 075 061 057 degrees QTc Int : 455 ms NORMAL SINUS RHYTHM NORMAL ECG WHEN COMPARED WITH ECG OF 04-JUL-2017 13:35, NO SIGNIFICANT CHANGE WAS FOUND Confirmed by MD Navarro Daniel ([id number]) on 05/20/2018 3:52:03 PM Referred By: Confirmed By:Amilcar Navarro MD
--- NOTE | 2018-05-20 15:56 | PN ---
[facility] Progress Note Note: Patient on Biktarvy for HIV which he has been asking for, verified with pharmacy in the community ). [facility] Pharmacy unable to dispense drug , patient made aware
[2018-05-20] MEDS: THIAMINE HCL 100 MG TABLET (FP) PO SCH (22:10)
[2018-05-20] MEDS: MELATONIN 5 MG TABLETS PO PRN (22:11)
[2018-05-20] MEDS: QUEtiapine FUMARATE 50 MG TABLET PO SCH (22:12)
[2018-05-21] MEDS: IBUPROFEN 400 MG TABLET (FP) PO PRN ×3 (00:41→17:40)
[2018-05-21] MEDS: CYCLOBENZAPRINE HCL 5 MG TABLET PO PRN (00:41)
[2018-05-21] MEDS: hydrOXYzine PAMOATE 25 MG CAPSULE (FP) PO PRN ×2 (06:01→17:40)
[2018-05-21] MEDS: PRENATAL VITAMINS W/ FOLIC ACID TABLET (FP) PO SCH (09:46)
[2018-05-21] MEDS: amLODIPine BESYLATE 5 MG TABLET (FP) PO SCH (09:46)
[2018-05-21] MEDS: NICOTINE 7 MG/24 HOURS TOPICAL PATCH TD SCH (09:47)
[2018-05-21] MEDS ORDERED: METHADONE HCL 5 MG TABLET (FOR DETOX USE ONLY) PO ONE (10:00)
--- NOTE | 2018-05-21 13:51 | PN ---
BHS COWS - Scale Resting Pulse: 0= [place] 80 or Below Sweatin= Chills/Flushing Restless Observation: 1= Difficult to Sit Still Pupil Size: 1= Pupils >than Normal Bone or Joint Aches: 1= Mild Discomfort Runny Nose/ Eye Tearin= Nasal Congestion GI Upset > 30mins: 1= Stomach Cramp Tremor Observation of Outstretched Hands: 2= Slight Tremor Visible Yawning Observation: 2= >3x During Session Anxiety or Irritability: 2=Irritable/Anxious Goose Flesh Skin: 0=Smooth Skin COWS Score: 12 BHS Progress Note (SOAP) Subjective: body aches joints pain muscle cramping sweat tremor restlessness Objective: 05/21/18 13:51 Vital Signs Temperature 97.9 F 05/21/18 09:38 Pulse Rate 76 05/21/18 09:38 Respiratory Rate 18 05/21/18 09:38 Blood Pressure 148/88 05/21/18 09:38 O2 Sat by Pulse Oximetry (%) Laboratory Last Values WBC 7.9 K/mm3 (4.0-10.0) 05/20/18 06:10 RBC 4.03 M/mm3 (4.00-5.60) 05/20/18 06:10 Hgb 13.1 GM/dL (11.7-16.9) 05/20/18 06:10 Hct 39.0 % (35.4-49) 05/20/18 06:10 MCV 96.8 fl (80-96) H 05/20/18 06:10 MCH 32.5 pg (25.7-33.7) 05/20/18 06:10 MCHC 33.6 g/dl (32.0-35.9) 05/20/18 06:10 RDW 13.6 % (11.9-15.9) 05/20/18 06:10 Plt Count 194 K/MM3 (134-434) D 05/20/18 06:10 MPV 9.1 fl (7.5-11.1) D 05/20/18 06:10 Sodium 139 mmol/L (136-145) 05/20/18 06:10 Potassium 3.9 mmol/L (3.5-5.1) 05/20/18 06:10 Chloride 103 mmol/L (98-107) 05/20/18 06:10 Carbon Dioxide 26 mmol/L (21-32) 05/20/18 06:10 Anion Gap 10 MMOL/L (8-16) 05/20/18 06:10 BUN 16 mg/dL (7-18) 05/20/18 06:10 Creatinine 1.6 mg/dL (0.55-1.3) H 05/20/18 06:10 Creat Clearance w eGFR 44.94 (>60) 05/20/18 06:10 Random Glucose 114 mg/dL (74-106) H 05/20/18 06:10 Calcium 9.3 mg/dL (8.5-10.1) 05/20/18 06:10 Total Bilirubin 0.4 mg/dL (0.2-1) 05/20/18 06:10 AST 22 U/L (15-37) 05/20/18 06:10 ALT 27 U/L (13-61) 05/20/18 06:10 Alkaline Phosphatase 137 U/L (45-117) H 05/20/18 06:10 Total Protein 7.8 g/dl (6.4-8.2) 05/20/18 06:10 Albumin 3.8 g/dl (3.4-5.0) 05/20/18 06:10 Urine Color Yellow 05/19/18 15:30 Urine Appearance Slcloudy 05/19/18 15:30 Urine pH 5.0 (5.0-8.0) 05/19/18 15:30 Ur Specific [place] 1.019 (1.001-1.035) 05/19/18 15:30 Urine Protein 1+ (NEGATIVE) H 05/19/18 15:30 Urine Glucose (UA) Negative (NEGATIVE) 05/19/18 15:30 Urine Ketones Negative (NEGATIVE) 05/19/18 15:30 Urine Blood Negative (NEGATIVE) 05/19/18 15:30 Urine Nitrite Negative (NEGATIVE) 05/19/18 15:30 Urine Bilirubin Negative (<2.0 mg/dL) 05/19/18 15:30 Urine Urobilinogen Negative mg/dL (0.2-1.0) 05/19/18 15:30 Ur Leukocyte Esterase Negative (NEGATIVE) 05/19/18 15:30 Urine WBC (Auto) 1 /hpf (3-5) 05/19/18 15:30 Urine RBC (Auto) 1 /hpf (0-3) 05/19/18 15:30 Ur Epithelial Cells Rare /HPF (FEW) 05/19/18 15:30 Calcium Oxalate Crystal Few /hpf (NONE SEEN) 05/19/18 15:30 Hyaline Casts 56 /lpf 05/19/18 15:30 Urine Mucus Many 05/19/18 15:30 RPR Titer Nonreactive (NONREACTIVE) 05/20/18 06:10 lab noted Assessment: 05/21/18 13:51 withdrawal sx Plan: continue detox
[2018-05-21] MEDS: GABAPENTIN 100 MG CAPSULE (FP) PO SCH ×2 (15:08→22:32)
[2018-05-21] MEDS: THIAMINE HCL 100 MG TABLET (FP) PO SCH (22:32)
[2018-05-21] MEDS: QUEtiapine FUMARATE 50 MG TABLET PO SCH (22:34)
[2018-05-21] MEDS: MELATONIN 5 MG TABLETS PO PRN (22:35)
[2018-05-22] MEDS: hydrOXYzine PAMOATE 25 MG CAPSULE (FP) PO PRN (06:15)
[2018-05-22] MEDS: IBUPROFEN 400 MG TABLET (FP) PO PRN (06:15)
[2018-05-22] MEDS: CYCLOBENZAPRINE HCL 5 MG TABLET PO PRN (06:15)
--- NOTE | 2018-05-22 09:04 | PN ---
[facility] Progress Note Note: Patient requesting an early discharge. States has to leave. States has mild tremors but otherwise feels fine. Discussed the withdrawals are being reduced by medications and that they may re- surface once discharged. Discussed loss of tolerance and risk of overdose. Verbalized an understanding. Discussed importance of utilizing support groups such as N/A.
[2018-05-22 09:14] VITALS: BP 151/91; PULSE 71; TEMP 98.4
[2018-05-22] MEDS: NICOTINE 7 MG/24 HOURS TOPICAL PATCH TD SCH (09:19)
[2018-05-22] MEDS: amLODIPine BESYLATE 5 MG TABLET (FP) PO SCH (09:19)
[2018-05-22] MEDS: GABAPENTIN 100 MG CAPSULE (FP) PO SCH (09:19)
[2018-05-22] MEDS: PRENATAL VITAMINS W/ FOLIC ACID TABLET (FP) PO SCH (09:19)
[2018-05-22] MEDS ORDERED: METHADONE HCL 10 MG TABLET (FOR DETOX USE ONLY) PO ONE (10:00)
--- NOTE | 2018-05-22 21:02 | DS ---
[facility] Detox Discharge Summary Admission Date: 05/19/18 Discharge Date: 05/22/18 - History Present History: Opioid Dependence Additional Comments: Admitted with opiate withdrawal. Hx opiate use disorder since age 19. - Physical Exam Results Vital Signs: Vital Signs Temperature 98.4 F 05/22/18 09:14 Pulse Rate 71 05/22/18 09:14 Respiratory Rate 18 05/22/18 09:14 Blood Pressure 151/91 05/22/18 09:14 O2 Sat by Pulse Oximetry (%) Pertinent Admission Physical Exam Findings: Admitted with signs and symptoms of opiate use disorder. Laboratory Tests 05/19/18 05/20/18 05/20/18 15:30 06:10 06:10 WBC 7.9 RBC 4.03 Hgb 13.1 Hct 39.0 MCV 96.8 H MCH 32.5 MCHC 33.6 RDW 13.6 Plt Count 194 D MPV 9.1 D Sodium 139 Potassium 3.9 Chloride 103 Carbon Dioxide 26 Anion Gap 10 BUN 16 Creatinine 1.6 H Creat Clearance w eGFR 44.94 Random Glucose 114 H Calcium 9.3 Total Bilirubin 0.4 AST 22 ALT 27 Alkaline Phosphatase 137 H Total Protein 7.8 Albumin 3.8 Urine Color Yellow Urine Appearance Slcloudy Urine pH 5.0 Ur Specific [place] 1.019 Urine Protein 1+ H Urine Glucose (UA) Negative Urine Ketones Negative Urine Blood Negative Urine Nitrite Negative Urine Bilirubin Negative Urine Urobilinogen Negative Ur Leukocyte Esterase Negative Urine WBC (Auto) 1 Urine RBC (Auto) 1 Ur Epithelial Cells Rare Calcium Oxalate Crystal Few Hyaline Casts 56 Urine Mucus Many RPR Titer 05/20/18 06:10 WBC RBC Hgb Hct MCV MCH MCHC RDW Plt Count MPV Sodium Potassium Chloride Carbon Dioxide Anion Gap BUN Creatinine Creat Clearance w eGFR Random Glucose Calcium Total Bilirubin AST ALT Alkaline Phosphatase Total Protein Albumin Urine Color Urine Appearance Urine pH Ur Specific [place] Urine Protein Urine Glucose (UA) Urine Ketones Urine Blood Urine Nitrite Urine Bilirubin Urine Urobilinogen Ur Leukocyte Esterase Urine WBC (Auto) Urine RBC (Auto) Ur Epithelial Cells Calcium Oxalate Crystal Hyaline Casts Urine Mucus RPR Titer Nonreactive Labs reviewed. - Treatment Hospital Course: Detox Protocol Followed, Detoxed Safely, Responded well, Discharged Condition Good - Medication Discharge Medications: Ambulatory Orders Amlodipine Besylate [Norvasc -] 5 mg PO DAILY 03/14/17 - Diagnosis (1) Alcohol dependence with uncomplicated withdrawal Status: Acute (2) Nicotine dependence Status: Acute Qualifiers: Nicotine product type: cigarettes Substance use status: in withdrawal Qualified Code(s): F17.213 - Nicotine dependence, cigarettes, with withdrawal (3) HTN (hypertension) Status: Chronic Qualifiers: Hypertension type: essential hypertension Qualified Code(s): I10 - Essential (primary) hypertension - AMA Did Patient Leave Against Medical Advice: No
[2018-05-23] MEDS ORDERED: METHADONE HCL 5 MG TABLET (FOR DETOX USE ONLY) PO ONE (06:00)
== END 2018-05-22 09:30 | disposition home or self-care (01) | DRG 773 ==
LOC: YASAS 08:46 → Y6N 12:52
PROC: HZ2ZZZZ Detoxification Services for Substance Abuse Treatment (ICD-10-PCS; principal; 2018-05-19)
DX: F11.23 Opioid dependence with withdrawal (principal); F10.230 Alcohol dependence with withdrawal, uncomplicated; F13.230 Sedative, hypnotic or anxiolytic dependence with withdrawal, uncomplicated; F17.213 Nicotine dependence, cigarettes, with withdrawal; F19.282 Other psychoactive substance dependence with psychoactive substance-induced sleep disorder; F31.9 Bipolar disorder, unspecified; F43.10 Post-traumatic stress disorder, unspecified; F32.9 Major depressive disorder, single episode, unspecified; Z21 Asymptomatic human immunodeficiency virus [HIV] infection status; B18.2 Chronic viral hepatitis C; Z86.2 Personal history of diseases of the blood and blood-forming organs and certain disorders involving the immune mechanism; Z85.038 Personal history of other malignant neoplasm of large intestine; Z91.5 Personal history of self-harm; Z88.0 Allergy status to penicillin
CPT/HCPCS: 36415; 80053; 81003; 81015; 85027; 86593; 90688; 93005; 93010; G0008; J0735